=== PATIENT | female | born 1945 | race Caucasian/White ===

== ENCOUNTER 2016-08-11 17:12 | Emergency (ER) | payer MEDICARE, BC, MEDICAID ==
--- NOTE | 2016-09-10 17:10 | ER ---
ADMIT: 08/11/2016 RM/LOC: ER [facility] MR#: [id number] [address] [id number] NEVAEH MCINTYRE [facility] [place] [address] Emergency Room Report SEX: F AGE: 70 : 1945 DATE: 08/11/2016 HISTORY OF PRESENT ILLNESS: female presents to emergency room complaining of shortness of breath, obvious that she is struggling to keep her oxygen normal. She does have a cough too and says she has not been feeling good today. Her eyes look watery. She has a cardiac history. She has had CHF and hypertension. She had stents and open heart surgery, which she does take Coumadin for. MEDICATIONS: She has a nice list of medications, which include: 1. Sucralfate. 2. Glucosamine. 3. Warfarin. 4. Evista. 5. Amlodipine. 6. Tramadol. 7. Namenda. 8. Prilosec. 9. Zanaflex. 10.Metoprolol. 11.Imdur. 12.Loratadine. 13.Lisinopril. 14.Zoloft. 15.Furosemide. 16.Aricept. 17.Topamax. 18.Calcium. 19.Atorvastatin. PHYSICAL EXAMINATION: GENERAL: Well-nourished and well-developed, alert, and oriented female very pleasant. VITAL SIGNS: 155/60 blood pressure, respirations 26, O2 sats 93%. LUNGS: Wheezes throughout. She has a scar in her anterior chest from her cardiac surgery. ABDOMEN: Nontender. HEENT: Normal inspection. Ears are patent and clear. Posterior pharynx is noninjected. NECK: Supple. No adenopathy or thyromegaly. DIAGNOSTIC DATA: Her x-ray did show emphysematous changes, diagnosed with emphysema at this time. White count is normal with a hemoglobin of 11.4, hematocrit is 35.4. Creatinine is 1.2. Her flu is negative. A BNP was 156 with a troponin of 0.015. CLINICAL IMPRESSION: 1. Chronic obstructive pulmonary disease with exacerbation. 2. Upper respiratory infection. ADMIT: 08/11/2016 RM/LOC: ER [facility] MR#: [id number] [address] NEVAEH MCINTYRE [address] [place] [id number] Emergency Room Report SEX: F AGE: 70 : 1945 3. Emphysema. 4. Viral syndrome. 5. Cough. She was given albuterol inhaler with instructions and Z-Melo. Phenergan and codeine for cough. Discharged with instructions to follow up with their primary provider. While in the ER, she received a Decadron shot, Phenergan, and codeine with Tylenol 1 g. I think she may be too early to test positive for influenza in her swab, but was treated as such except for the antibiotic to prevent any further issues with her lungs. Her INR was 4.0. She was advised to stop her Coumadin for 1 day as she states she is going to be seeing Dr. Pablo in the morning. See T-sheet for instructions. WENDIE Rod / Haider Newman MD / modl JOB #: [id number] CC: Haider Newman MD, Attending Physician Kellie Pablo MD, Family Physician
== END 2016-08-11 19:55 | disposition home or self-care (01) ==
LOC: ER 17:12
DX: J44.1 Chronic obstructive pulmonary disease with (acute) exacerbation (principal); J06.9 Acute upper respiratory infection, unspecified; B34.9 Viral infection, unspecified; I10 Essential (primary) hypertension; F17.210 Nicotine dependence, cigarettes, uncomplicated; Z79.01 Long term (current) use of anticoagulants; Z79.899 Other long term (current) drug therapy

== ENCOUNTER 2016-11-08 05:42 | Day surgery (SDC) | payer MEDICARE, BC, MEDICAID ==
[~2016-11-08] VITALS: Ht 162.6 cm; Wt 67.2 kg
--- NOTE | 2016-11-19 11:47 | OR ---
ADMIT: 11/08/2016 RM/LOC: [facility] MR#: [id number] [place], [place] [address] NEVAEH MCINTYRE [address] [address] Operative/Delivery Room Report SEX: F AGE: 70 : 1945 SURGERY DATE: 11/08/2016 SURGEON: Simone Arguelles MD PREOPERATIVE DIAGNOSIS: Change in bowels, some increased diarrhea, and need for screening colonoscopy. POSTOPERATIVE DIAGNOSIS: Grossly normal-appearing colonoscopy. PROCEDURE: Colonoscopy with biopsies of: 1. The terminal ileum. 2. The right colon. ANESTHESIA: MAC anesthesia. ESTIMATED BLOOD LOSS: Less than 5 mL. INDICATION FOR PROCEDURE: Please see H and P. DESCRIPTION OF PROCEDURE: After the risks, benefits, possible complications, and the alternatives have been explained, and informed consent had been obtained, the patient was taken back to the procedure room, underwent sedation. The flexible colonoscope was introduced and slowly maneuvered throughout the colon all the way over to the cecum seen in picture 2, was able to make it to the terminal ileum seen in picture 1. I did do some biopsies in the terminal ileum as well as the right colon secondary to some looser stool, diarrhea symptoms, however, grossly everything appeared normal. The remainder of the ascending, transverse, descending, sigmoid, and rectum showed no masses, lesions, or polyps. Rectal exam revealed no mass or lesion. The scope was removed and the procedure terminated. She tolerated it well and was taken to recovery room in stable and satisfactory condition. Simone Arguelles MD/ kita JOB #: [id number] CC: Simone Arguelles, Attending Physician Kellie Pablo, Family Physician Kellie Pablo MD
== END 2016-11-08 09:35 | disposition home or self-care (01) ==
LOC: SSS 05:42
PROC: 0DBB8ZX Excision of Ileum, Via Natural or Artificial Opening Endoscopic, Diagnostic (ICD-10-PCS; principal; 2016-11-08)
PROC: 0DBF8ZX Excision of Right Large Intestine, Via Natural or Artificial Opening Endoscopic, Diagnostic (ICD-10-PCS; principal; 2016-11-08)
DX: K52.9 Noninfective gastroenteritis and colitis, unspecified (principal); G47.30 Sleep apnea, unspecified; I25.2 Old myocardial infarction; I10 Essential (primary) hypertension; I25.10 Atherosclerotic heart disease of native coronary artery without angina pectoris; Z87.891 Personal history of nicotine dependence; Z79.899 Other long term (current) drug therapy; Z95.2 Presence of prosthetic heart valve; Z79.891 Long term (current) use of opiate analgesic